=== PATIENT | female | born 1970 | race Caucasian/White ===

== ENCOUNTER → 2020-06-09 08:39 | Outpatient (CLI) | payer BC | END | disposition home or self-care (01) | LOC: D.US 08:39 | PROVIDERS: ATTEND Internal Medicine Hematology & Oncology | DX: D69.49 Other primary thrombocytopenia (principal) ==

== ENCOUNTER 2020-06-15 06:38 | Day surgery (SDC) | payer BC ==
--- NOTE | 2020-06-14 14:18 | NUR ---
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
[~2020-06-15] VITALS: Ht 162.6 cm; Wt 92.3 kg
[2020-06-15 06:52] LABS: BASOPHILS 0.5 % (0-2); EOSINOPHILS 9.6 % (0-7); HEMATOCRIT 42.6 % (36.0-48.0); HEMOGLOBIN 13.5 g/dL (12-16); LYMPHOCYTE ABS# 1.63 10x3/uL (1.18-3.74); LYMPHOCYTES 29.4 % (15-50); MCH 27.1 pg (26.0-34.0); MCHC 31.7 g/dL (31.0-37.0); MCV 85.4 fL (80.0-100.0); MEAN PLATELET VOLUME 11.8 fL (7.4-10.4); MONOCYTES 7.9 % (2-11); NEUTROPHIL ABS# 2.91 10x3/uL (1.56-6.13); NEUTROPHILS 52.6 % (40-80); PLATELET COUNT 69 10x3/uL (130-400); RBC 4.99 10x6/uL (4.00-5.40); RDW 13.6 % (11.5-14.5); WBC 5.5 10x3/uL (4.8-10.8)
[2020-06-15 07:01] LABS: INR 1.05 (0.85-1.17); PROTIME 12.7 SECONDS (11.6-15.0)
[2020-06-15 07:02] LABS: APTT 27.6 SECONDS (22.8-39.4)
[2020-06-15 07:04] LABS: CALC OSMOLALITY 282 mosm/kg (275-300); CALCIUM 9.4 mg/dL (8.5-10.1); CARBON DIOXIDE 29.6 mmol/L (21.0-32.0); CHLORIDE - SERUM 106 mmol/L (98-107); CREATININE - SERUM 0.8 mg/dL (0.6-1.3); GLUCOSE 107 mg/dL (74-106); POTASSIUM - SERUM 4.1 mmol/L (3.5-5.1); SODIUM 143 mmol/L (136-145); UREA NITROGEN 8 mg/dL (7-18); eGFR NON AFRICAN AMERICAN 80 mL/min (90-120)
[2020-06-15 07:10] LABS: PLATELET ESTIMATE DECREASED
[2020-06-15 07:18] VITALS: BP 123/58; Ht 162.6 cm; Wt 92.3 kg
[2020-06-15 07:27] LABS: HCG SERUM NEGATIVE (NEGATIVE)
--- NOTE | 2020-06-15 10:12 | NUR ---
1010 INSTRUCTIONS GIVEN AND PATIENT FINISHING WITH BREAKFAST TRAY, DENIES PAIN. AND DRESSING CDI
== END 2020-06-15 11:18 | disposition home or self-care (01) ==
LOC: D.CT 06:38
PROVIDERS: Anesthesiology; Specialist; ATTEND Internal Medicine Hematology & Oncology
DX: D69.49 Other primary thrombocytopenia (principal); Z13.220 Encounter for screening for lipoid disorders; K21.9 Gastro-esophageal reflux disease without esophagitis; R06.00 Dyspnea, unspecified; Z68.37 Body mass index [BMI] 37.0-37.9, adult; M17.9 Osteoarthritis of knee, unspecified; Z11.4 Encounter for screening for human immunodeficiency virus [HIV]